=== PATIENT | female | born 1955 | race Caucasian/White ===

== ENCOUNTER 2016-11-26 22:17 | Emergency (ER) | payer OTHER ==
[~2016-11-26] VITALS: Ht 152.4 cm; Wt 80.7 kg
--- NOTE | 2016-11-26 22:23 | NUR ---
Patient to ER bed 8 to gown for evaluation. Side rails up. Report given to Ruth RIZO.
--- NOTE | 2016-11-26 22:25 | NUR ---
Pt awake and alert. Pt c/o lower back pain radiating to right flank area. Pain is stated at 10/10. Pt denies any nausea, diarrhea or vomiting. No signs of SOB or acute distress noted. Ankit continue to monitor.
[2016-11-26 22:28] VITALS: BP_SYST 144
--- NOTE | 2016-11-26 22:45 | NUR ---
LESLI CORONADO MD at bedside examining patient.
[2016-11-26 23:00] VITALS: BP_SYST 135
[2016-11-26] MEDS ORDERED: DIPHENHYDRAMINE HCL 25 MG CAPSULE PO ONE (23:00)
[2016-11-26] MEDS ORDERED: KETOROLAC TROMETHAMINE 60 MG/2 ML VIAL IM ONE (23:00)
[2016-11-26] MEDS ORDERED: HYDROcodone/ACETAMIN 7.5-325 MG TAB PO ONE (23:00)
--- NOTE | 2016-11-26 23:00 | NUR ---
Patient given written and verbal discharge instructions and verbalizes understanding. LESLI Turner MD discussed with patient the results and treatment provided. Patient in stable condition. ID arm band removed. Rx of Ibuprofen, and Perry given. Patient educated on pain management and to follow up with PMD. Pain Scale 2/10. Opportunity for questions provided and answered.
== END 2016-11-26 23:00 | disposition home or self-care (01) ==
LOC: SED 22:17
DX: N20.2 Calculus of kidney with calculus of ureter (principal); I10 Essential (primary) hypertension
CPT/HCPCS: 96372; 99283; J1885; Q0163